=== PATIENT | female | born 1990 | race Caucasian/White ===

== ENCOUNTER 2018-05-28 16:11 | Emergency (ER) | payer SELFPAY ==
[~2018-05-28] VITALS: Ht 162.6 cm; Wt 79.7 kg
[~2018-05-28 16:11] MED LIST: CLIN300C10 PO; HYDR-3498 PO; IBUP-1542 PO; IBUP800T48 PO; PROM6.25 PO
[2018-05-28 16:17] VITALS: BP 119/71; PULSE 76; RESP 18; Ht 162.6 cm; Wt 79.7 kg
[2018-05-28] MEDS ORDERED: ACET-141 PO (18:51)
[2018-05-28] MEDS ORDERED: METH750T93 PO (18:51)
[2018-05-28] MEDS ORDERED: IBUP-1542 PO (18:51)
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
== END 2018-05-28 18:58 | disposition home or self-care (01) ==
LOC: FTE 16:11
DX: M54.2 Cervicalgia (principal); M54.6 Pain in thoracic spine; F17.210 Nicotine dependence, cigarettes, uncomplicated
CPT/HCPCS: 99282